=== PATIENT | male | born 1995 ===

== ENCOUNTER 2017-10-22 21:05 | Emergency (ER) | payer BC ==
--- NOTE | 2017-10-22 23:12 | C.PDOC ---
History Of Present Illness 22 y/o male presents to the ER for evaluation of right ankle after sustaining an injury while playing basketball earlier today. The patient denies any weakness, numbness or tingling sensation. He offers no other medical complaints at this time. Time Seen by Provider: 10/22/17 21:37 Chief Complaint (Nursing): Lower Extremity Problem/Injury History Per: Patient History/Exam Limitations: no limitations Onset/Duration Of Symptoms: Hrs Current Symptoms Are (Timing): Still Present Recent travel outside of the [place]: No Past Medical History Reviewed: Historical Data, Nursing Documentation, Vital Signs Vital Signs: Last Vital Signs Temp 99.1 F 10/22/17 23:24 Pulse 71 10/22/17 23:24 Resp 15 10/22/17 23:24 BP 102/59 L 10/22/17 23:24 Pulse Ox 99 10/23/17 01:49 - Medical History PMH: No Chronic Diseases Surgical History: No Surg Hx Family History: States: Unknown Family Hx - Social History Hx Alcohol Use: Yes Hx Substance Use: No Review Of Systems Except As Marked, All Systems Reviewed And Found Negative. Constitutional: Negative for: Fever Musculoskeletal: Positive for: Other (Right ankle pain). Negative for: Leg Pain , Foot Pain Skin: Negative for: Lesions, Bruising Neurological: Negative for: Weakness, Numbness, Other (tingling) Physical Exam - Physical Exam Appears: Well, Non-toxic, No Acute Distress Skin: Normal Color, Warm Head: Atraumatic, Normacephalic Extremity: No Normal ROM (decreased ROM due to pain), Capillary Refill, No Deformity, No Swelling Pulses: Left Dorsalis Pedis: Normal, Right Dorsalis Pedis: Normal Gait: Unable To Assess ED Course And Treatment O2 Sat by Pulse Oximetry: 99 (RA) Pulse Ox Interpretation: Normal Progress Note: Placed posterior splint placed by CP and checked by me. Pt is neurovasc intact and crutches were given. The patient was advised to follow up with orthopedic or return to the ER if the pain worsens, numbness or discoloration. 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 - Scribe Statement The provider has reviewed the documentation as recorded by the Scribe (Maki Vasquez) All medical record entries made by the Scribe were at my direction and personally dictated by me. I have reviewed the chart and agree that the record accurately reflects my personal performance of the history, physical exam, medical decision making, and the department course for this patient. I have also personally directed, reviewed, and agree with the discharge instructions and disposition.
[2017-10-22 23:25] VITALS: BP 102/59; PULSE 71; RESP 15; TEMP 99.1
[2017-10-23 01:46] VITALS: O2SAT 99
--- NOTE | 2017-10-23 11:39 | RAD ---
Right ankle three views History: Twisting injury. Comparison: None available. Findings: Prominent lateral malleolar soft tissue swelling. No evidence of acute displaced fracture or dislocation. Impression: Prominent lateral malleolar soft tissue swelling. No evidence of acute displaced fracture or dislocation. If pain persists, consider MRI.
== END 2017-10-22 23:24 | disposition home or self-care (01) ==
LOC: C.ER 21:05
DX: S93.401A Sprain of unspecified ligament of right ankle, initial encounter (principal); X50.0XXA Overexertion from strenuous movement or load, initial encounter; Y93.67 Activity, basketball; Y92.39 Other specified sports and athletic area as the place of occurrence of the external cause